=== PATIENT | male | born 1985 | race Asian ===

== ENCOUNTER 2018-07-12 10:06 | Outpatient (CLI) | payer BC ==
[2018-07-12 10:59] LABS: Hemoglobin 15.8 g/dL (14.0-18.0); Mean Corpuscular HGB CONC 32.9 g/dL (32.0-36.0); Mean Corpuscular Hemoglobin 29.6 pg (27.0-31.0); Mean Corpuscular Volume 89.9 fL (78.0-98.0); Mean Platelet Volume 6.8 fL (7.4-10.4); Platelet Count 347 thou/uL (130-400); RBC Distribution Width 11.7 % (11.5-14.5); Red Blood Cell (RBC) Count 5.35 mill/uL (4.70-6.10); White Blood Cell (WBC) Count 7.7 thou/uL (4.8-10.8)
[2018-07-12 11:21] LABS: Anion Gap 11 mmol/L (10-20); BUN (Urea Nitrogen) 13 mg/dL (8.9-20.6); Calc. Creatinine Clearance 0 mL/min (70-130); Calcium 9.1 mg/dL (7.8-10.44); Carbon Dioxide 27 mmol/L (22-29); Chloride 105 mmol/L (98-107); Estimated GFR-MDRD Greater than 90; Glucose 82 mg/dL (70-105); Potassium 3.9 mmol/L (3.5-5.1); Sodium 139 mmol/L (136-145)
== END 2018-07-12 10:07 | disposition home or self-care (01) ==
LOC: LABBT 10:06
PROVIDERS: ATTEND Neurological Surgery
DX: Z01.818 Encounter for other preprocedural examination (principal); M48.02 Spinal stenosis, cervical region
CPT/HCPCS: 80048; 85027; 93005; 93010

== ENCOUNTER 2018-07-15 07:37 | Day surgery (SDC) | payer BC ==
[2018-07-15] MEDS ORDERED: Sodium Chloride 0.9% 10 ML ONE (07:59)
[2018-07-15] MEDS ORDERED: CEFAZOLIN 1 GM VIAL ONE (08:08)
[2018-07-15] MEDS ORDERED: CEFAZOLIN 2 GM/50 ML BAG ONE (08:08)
[2018-07-15] MEDS ORDERED: Fentanyl 100 MCG/2 ML VIAL ONE (08:33)
[2018-07-15] MEDS ORDERED: HYDROcodone/Acetaminophen 5/325 mg Tablet ONE (11:14)
--- NOTE | 2018-07-15 11:59 | OP ---
DATE OF PROCEDURE: 07/15/2018 SURGEON: Damien Adrian M.D. [employer] OPERATOR: Seven Stovall PA-C PROCEDURE: Anterior cervical discectomy C5-6, interbody arthrodesis, intravertebral biomechanical de vice, local morselized autograft, demineralized bone matrix, anterior titanium instrumentation C5-6. PROCEDURE IN DETAIL: The patient was brought to the operating room, intubated. He was positioned chilel pine with the head in modest extension on a gel-filled donut. Incision was made in the right precerv ical area and dissecting medial to sternocleidomastoid muscle, identified the anterior cervical spine and our level was confirmed by x-ray. We debrided osteophytes, placed distraction across C5-6 and u sing the operating microscope and microdissection techniques, completely decompressed the intraverteb ral disc at C5-6. Next, the bony endplates were decorticated for the purpose of arthrodesis and appr opriately sized intravertebral biomechanical PEEK device was brought into the field, filled with angelia neralized bone matrix, local morselized autograft, and tapped into place securely at C5-6. Next, an anterior plate was brought in the field and secured to C5, and C6 using two 14 mm screws at each leve l. The wound was then extensively irrigated, immaculate hemostasis was secured. The wound was close d in anatomic layers.
[2018-07-15] MEDS ORDERED: Vecuronium 10 MG VIAL ONE (17:09)
[2018-07-15] MEDS ORDERED: Dexamethasone 20 MG/5 ML VIAL ONE (17:09)
[2018-07-15] MEDS ORDERED: PROPOFOL 200 MG/20 ML VIAL ONE (17:09)
[2018-07-15] MEDS ORDERED: Ketorolac Tromethamine 30 MG/ML VIAL ONE (17:09)
[2018-07-15] MEDS ORDERED: Ondansetron PF 4 MG/2 ML Vial ONE (17:09)
[2018-07-15] MEDS ORDERED: Glycopyrrolate 0.2 MG/ML 5 ML SYRINGE ONE (17:09)
[2018-07-15] MEDS ORDERED: Lidocaine 1% PF 5 ML VIAL ONE (17:09)
== END 2018-07-15 12:45 | disposition home or self-care (01) ==
LOC: SDC 07:37
PROVIDERS: ATTEND Neurological Surgery
PROC: 0RG1071 Fusion of Cervical Vertebral Joint with Autologous Tissue Substitute, Posterior Approach, Posterior Column, Open Approach (ICD-10-PCS; principal; 2018-07-15)
DX: M48.02 Spinal stenosis, cervical region (principal)
CPT/HCPCS: 76001; C1713; C1776; J0690; J1100; J1885; J2001; J2405; J2704; J3010; J3490

== ENCOUNTER 2018-08-01 15:36 | Outpatient (CLI) | payer BC ==
--- NOTE | 2018-08-01 16:07 | RAD ---
CERVICAL SPINE 4 VIEW: Date: 08/01/18 HISTORY: Cervical myelopathy. FINDINGS: Post anterior fusion changes. Anterior plate and screws are seen transfixing C5-6 with interbody impl ant. Posterior alignment is preserved. Vertebral bodies maintain height. IMPRESSION: Anterior fusion changes at C5-6. POS: [facility]
== END 2018-08-01 15:37 | disposition home or self-care (01) ==
LOC: TBSIIMAG 15:36
PROVIDERS: ATTEND Neurological Surgery
DX: G95.9 Disease of spinal cord, unspecified (principal); Z98.1 Arthrodesis status
CPT/HCPCS: 72040

== ENCOUNTER 2018-08-01 17:20 | Inpatient (IN) | payer BC ==
[2018-08-01] MEDS ORDERED: Mag-Al 1200 mg/1200 mg/30 ML UDCUP PO PRN (17:54)
[2018-08-01] MEDS ORDERED: Ondansetron PF 4 MG/2 ML Vial IVP PRN (17:54)
[2018-08-01] MEDS ORDERED: Promethazine HCl 12.5 MG SUPP PR PRN (17:54)
[2018-08-01] MEDS ORDERED: diphenhydrAMINE 25 MG CAP PO PRN (17:54)
[2018-08-01] MEDS ORDERED: Promethazine 25 MG TAB PO PRN (17:54)
[2018-08-01] MEDS ORDERED: Promethazine HCl 25 MG/ML VIAL IM PRN (17:54)
[2018-08-01] MEDS ORDERED: Morphine 4 MG/ML VIAL SLOW IVP PRN (17:54)
[2018-08-01] MEDS ORDERED: HYDROcodone/Acetaminophen 10/325 mg Tablet PO PRN (17:54)
[2018-08-01] MEDS ORDERED: diphenhydrAMINE 50 MG/ML VIAL IVP PRN (17:54)
[2018-08-01] MEDS ORDERED: traMADol HCl 50 MG TAB PO PRN ×2 (17:54)
[2018-08-01] MEDS ORDERED: Milk Of Magnesia 30 ML UDCUP PO PRN (17:54)
[2018-08-01 18:04] LABS: #Basophils 0.1 thou/uL (0.0-0.2); #Eosinphils 0.2 thou/uL (0.0-0.7); #Lymphocytes 2.9 thou/uL (1.20-3.40); #Monocytes 0.7 thou/uL (0.11-0.59); #Neutrophils 3.6 thou/uL (1.40-6.50); %Basophils 1.3 % (0.0-1.0); %Eosinophils 3.1 % (0.0-10.0); %Lymphocytes 38.9 % (21.0-51.0); %Monocytes 8.7 % (0.0-10.0); Hemoglobin 15.2 g/dL (14.0-18.0); Mean Corpuscular HGB CONC 33.2 g/dL (32.0-36.0); Mean Corpuscular Hemoglobin 29.4 pg (27.0-31.0); Mean Corpuscular Volume 88.6 fL (78.0-98.0); Mean Platelet Volume 6.6 fL (7.4-10.4); Platelet Count 472 thou/uL (130-400); RBC Distribution Width 11.3 % (11.5-14.5); Red Blood Cell (RBC) Count 5.16 mill/uL (4.70-6.10); White Blood Cell (WBC) Count 7.6 thou/uL (4.8-10.8)
[2018-08-01 18:28] LABS: Anion Gap 12 mmol/L (10-20); BUN (Urea Nitrogen) 10 mg/dL (8.9-20.6); Calc. Creatinine Clearance 0 mL/min (70-130); Calcium 9.5 mg/dL (7.8-10.44); Carbon Dioxide 29 mmol/L (22-29); Chloride 101 mmol/L (98-107); Estimated GFR-MDRD Greater than 90; Glucose 71 mg/dL (70-105); Potassium 4.2 mmol/L (3.5-5.1); Sodium 138 mmol/L (136-145)
[2018-08-01 19:15] VITALS: BMI 23.8
--- NOTE | 2018-08-01 19:54 | HP ---
DATE OF ADMISSION: 08/01/2018 ATTENDING PHYSICIAN: Damien Adrian M.D. HISTORY OF PRESENT ILLNESS: The patient is an otherwise healthy 32-year-old male who is known to us for cervical myelopathy who underwent C5-C6 ACDF on 07/15/2018 for herniated nucleus pulposus with cord compression. Following his surgery, he reports he had small amount of wound drainage which was initially bloody, became serous over the last 2 weeks with new development of purulent discharge last night. He denied any fever. Otherwise, he and his reports that he has been doing very well with improvement of extremity dysesthesias and strength. His x-rays today appear stable. I removed the Steri -Strips in our office and there was a notable amount of wound dehiscence with purulent drainage. There is a small surrounding area of erythema. PAST MEDICAL HISTORY: He is otherwise healthy. PAST SURGICAL HISTORY: Ear surgery in 1998, circumcision in 1999, C5-C6 ACDF on 07/15/2018. HOSPITALIZATIONS: See surgical history. FAMILY HISTORY: Noncontributory. SOCIAL HISTORY: The patient is . He does not smoke, drink or use any drugs. ALLERGIES: He has no known drug allergies. REVIEW OF SYSTEMS: Per HPI. PHYSICAL EXAMINATION: CONSTITUTIONAL: The patient is sitting in a chair comfortably in no acute distress. HEENT: Normocephalic, atraumatic. EYES: PERRLA. Extraocular movements intact. ENT: Oral mucosa is pink, intact, moist. SKIN: Patient has normal voice. NECK: Steri-Strips removed reveal a moderate amount of wound dehiscence with small area of surrounding erythema and purulent discharge. It is mildly tender over the incisional site. There is no significant edema. CARDIAC: Regular rate and rhythm. LUNGS: The patient is breathing comfortably with symmetric chest expansion. No evidence of dyspnea. MUSCULOSKELETAL: He has free active range of motion in all extremities and improved strength on my exam. He still does have some notable decrease in strength in the upper extremities, particularly with bilateral candle maker 4-/5. He is slightly hyperreflexive throughout. NEUROLOGIC: Alert and oriented x4. He has a steady gait. ASSESSMENT AND PLAN: This is a 32-year-old otherwise healthy male who is 2 weeks postoperative from a C5-C6 anterior cervical discectomy and fusion, who has developed postoperative wound infection. We will plan to directly admit to the med/surg floor. We will begin IV antibiotics and consult Infectious Disease for assistance. The patient will be made n.p.o. at midnight and we will plan for a washout in the am. EMIL
[2018-08-01] MEDS: Sodium Chloride 0.9% 1,000 ML IV SCH (20:33)
[2018-08-01] MEDS: tiZANidine HCl 4 MG TAB PO PRN (21:21)
[2018-08-01] MEDS: CEFAZOLIN 2 GM/50 ML-DEXTROSE 2 GM in Premix Bag 1 BAG IVPB SCH (21:21)
[2018-08-01] MEDS: HYDROcodone/Acetaminophen 10/325 mg Tablet PO PRN (21:21)
[2018-08-02] MEDS: CEFAZOLIN 2 GM/50 ML-DEXTROSE 2 GM in Premix Bag 1 BAG IVPB SCH (05:41)
[2018-08-02] MEDS ORDERED: Morphine 2 MG/ML SYRINGE SLOW IVP PRN (05:52)
[2018-08-02] MEDS: Sodium Chloride 0.9% 1,000 ML IV SCH ×2 (10:13→22:28)
[2018-08-02] MEDS ORDERED: Fentanyl 100 MCG/2 ML VIAL ONE ×2 (10:20→12:52)
[2018-08-02] MEDS ORDERED: Sodium Chloride 0.9% 10 ML ONE (10:25)
[2018-08-02] MEDS ORDERED: Midazolam HCl 2 mg/2 ml Vial ONE (11:22)
[2018-08-02] MEDS ORDERED: diphenhydrAMINE 50 MG/ML VIAL ONE ×2 (11:51→13:01)
[2018-08-02] MEDS ORDERED: Acetaminophen 325 MG TAB PO PRN (12:06)
--- NOTE | 2018-08-02 12:49 | OP ---
DATE OF PROCEDURE: 08/02/2018 SURGEON: Damien Adrian M.D. [employer]ICATION[employer] SERGEANT: Jeffrey Carlisle PROCEDURE: Reexploration of cervical wound. PROCEDURE IN DETAIL: The patient was brought into the operating room and intubated, positioned supin e with the head in modest extension on a gel-filled donut. The previous incision was reopened. We d id not identify any pockets of purulent material or any necrotic debris. We explored the subplatysma l layer and did not identify any communication to the deeper layers and in fact, this had largely hea led. I was not convinced there is any evidence of wound infection. We did extensively irrigate the wound with Bacitracin irrigation. Next, we debrided the edges of the wound to viable tissue and then the wound was closed in anatomic layers with absorbable suture.
[2018-08-02] MEDS ORDERED: Metoclopramide HCl 10 MG/2 ML VIAL ONE (13:01)
[2018-08-02] MEDS ORDERED: Lidocaine 1% PF 5 ML VIAL ONE (13:01)
[2018-08-02] MEDS ORDERED: Dexamethasone 20 MG/5 ML VIAL ONE (13:01)
[2018-08-02] MEDS ORDERED: PROPOFOL 200 MG/20 ML VIAL ONE (13:01)
[2018-08-02] MEDS ORDERED: Ondansetron PF 4 MG/2 ML Vial ONE (13:01)
[2018-08-02] MEDS ORDERED: Succinylcholine Chloride 20 MG/ML 10 ml SYRINGE FS ONE (13:01)
[2018-08-02] MEDS ORDERED: Ketorolac Tromethamine 30 MG/ML VIAL ONE (13:01)
[2018-08-02] MEDS: Cefepime 2 GM in Sodium Chloride 0.9% 100 ML IVPB SCH (13:54)
[2018-08-02] MEDS: Vancomycin HCl 1.25 GM in Sodium Chloride 0.9% 250 ML 250 ML IVPB SCH ×2 (14:56→22:28)
--- NOTE | 2018-08-02 17:22 | CON ---
DATE OF CONSULTATION: 08/02/2018 REASON FOR CONSULTATION: Postop inflammatory changes with drainage. HISTORY OF PRESENT ILLNESS: A 32-year-old who developed symptoms of radiculopathy and myelopathy and underwent C5-C6 ACDF at the end of June. He developed some wound drainage and reportedly purulent discharge the night before admission. Therefore, led to admission and he had a surgical revision by Dr. Adrian on August 02, 2018. The operative report reviewed and no evidence of any purulent or necrotic material identified and no evidence of communication to the deeper layers, which actually appeared to be healed. I believe cultures have been submitted and are pending. The patient is currently feeling well with mild pain at the site. No headaches, visual symptoms, sore throat, odynophagia. No chest pain, a little bit constipated, able to void without difficulty. No abdominal pain, no joint symptoms. No other neurological symptoms. PAST MEDICAL HISTORY: Not remarkable. He had a circumcision and ear surgery. SOCIAL HISTORY: . He is originally from [facility] and never smoked cigarettes. 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 ALLERGIES: He has no allergies. CURRENT MEDICATIONS: Include Tylenol, Debary, Maalox, cefepime, Benadryl, and vancomycin. PHYSICAL EXAMINATION: VITAL SIGNS: Normal. He is afebrile. The incision is noted and under the dressing, no unusual appearance. Peripheral IV access. No Masters catheter. He has no lymphadenopathy. HEENT: Ocular movements conjugate. Oral cavity normal. No jugular vein distention.. LUNGS: Symmetric clear breath sounds. HEART: S1, S2, regular rate without murmurs. No S3, S4. ABDOMEN: Soft, nondistended. No ascites. No bladder distention. Maybe a little bit of bladder distention. EXTREMITIES: No joint inflammatory activity. Pulses 1+ in the chart. Plantar responses are flexor. NEUROLOGIC: Cognitive function appears to be intact, a little bit drowsy. LABORATORY DATA: The chemistry was perfectly normal. The CBC with a platelet count of 472. Differential was normal except for some increase in basophils. I see cultures submitted here, but not resulted yet. We will have a cervical spine x-ray from August 01, 2018, which showed anterior fusion changes with preserved alignment. ASSESSMENT: Otherwise unremarkable past medical history with post - Anterior Cervical Discectomy and Fusion drainage. The operative findings were not very remarkable. There was no evidence of deep penetration and even if cultures are positive, we could probably manage this with oral antimicrobials for discharge planning for a few days. EMIL
[2018-08-02] MEDS: HYDROcodone/Acetaminophen 10/325 mg Tablet PO PRN (20:33)
[2018-08-02] MEDS ORDERED: Vancomycin HCl 1 GM in Premix Bag 1 BAG IVPB SCH (21:00)
[2018-08-03] MEDS: tiZANidine HCl 4 MG TAB PO PRN (00:28)
[2018-08-03] MEDS: Cefepime 2 GM in Sodium Chloride 0.9% 100 ML IVPB SCH (00:28)
[2018-08-03] MEDS: Vancomycin HCl 1.25 GM in Sodium Chloride 0.9% 250 ML 250 ML IVPB SCH (06:04)
[2018-08-03] MEDS: HYDROcodone/Acetaminophen 10/325 mg Tablet PO PRN (06:09)
[2018-08-03 08:52] VITALS: BP 119/62; TEMP 97.3
== END 2018-08-03 10:30 | disposition home or self-care (01) | DRG 858 ==
LOC: SURG A 17:20
PROVIDERS: ADMIT Neurological Surgery; ATTEND Neurological Surgery
PROC: 0RJ Upper Joints, Inspection (ICD-10-PCS; principal; 2018-08-02)
DX: T81.40XA Infection following a procedure, unspecified, initial encounter (principal)
CPT/HCPCS: 36415; 72040; 80048; 85025; 85652; 87040; 87070; 87076; 87077; 87186; 87205; J0692; J1100; J1200; J1885; J2001; J2250; J2270; J2405; J2704; J2765; J3010; J3370; J3490; J7050

== ENCOUNTER 2018-08-27 14:40 | Outpatient (CLI) | payer BC ==
--- NOTE | 2018-08-27 18:19 | RAD ---
FIVE VIEWS CERVICAL SPINE: 08/27/18 HISTORY: Cervical fusion. Cervical stenosis. Followup exam. COMPARISON: 08/01/18. FINDINGS: On the AP projection, and open mouth projection, no malalignment. Odontoid process is intact. Lateral masses of C1 and C2 articulate appropriately. On the latter and swimmers projection, there is no pre vertebral soft tissue swelling. There is stable alignment of the cervical spine. There is an anterior fusion plate with transvertebral body screw at C5-C6. No perihardware lucency. Stable disc prosthesi s at C5-6. IMPRESSION: Stable cervical fusion changes. POS: [facility]
== END 2018-08-27 14:41 | disposition home or self-care (01) ==
LOC: TBSIIMAG 14:40
PROVIDERS: ATTEND Neurological Surgery
DX: M48.02 Spinal stenosis, cervical region (principal); Z98.1 Arthrodesis status
CPT/HCPCS: 72040

== ENCOUNTER 2018-10-29 13:33 | Outpatient (CLI) | payer BC ==
--- NOTE | 2018-10-29 14:42 | RAD ---
CERVICAL SPINE AP AND LATERAL STANDARD: History: M54.12 cervical radiculopathy. Comparison: 08-27-18 FINDINGS: Open mouth odontoid view is normal. Similar appearance ACDF hardware C5-6 with discectomy changes. No hardware complication. No acute superimposed fracture or malalignment. IMPRESSION: Similar appearance post-operative changes C5-6. POS: [facility]
== END 2018-10-29 13:34 | disposition home or self-care (01) ==
LOC: TBSIIMAG 13:33
PROVIDERS: ATTEND Neurological Surgery
DX: M54.12 Radiculopathy, cervical region (principal); Z98.890 Other specified postprocedural states
CPT/HCPCS: 72040

== ENCOUNTER 2018-11-19 14:07 | Outpatient (CLI) | payer BC ==
--- NOTE | 2018-11-19 15:54 | MRI ---
LUMBAR SPINE MRI WITHOUT IV CONTRAST 11/19/18 HISTORY: M54.16, low back pain since June 2018. FINDINGS: Conus medullaris region is unremarkable terminating at L1. No evidence for abnormal marrow signal. No significant disc desiccation changes. The L1-L2, L2-L3, and L3-L4 levels demonstrate no significant herniation or canal or foraminal steno sis. At L4-L5, there is slightly more prominent ligamentous hypertrophic changes and very slight disc bulg ing but no canal, lateral recess, or foraminal stenosis. L5-S1 level is unremarkable. IMPRESSION: Unremarkable lumbar spine MRI, very mild disc bulging at L4-L5 but no evidence for significant theca l or nerve root compression or associated stenosis. No evidence for other abnormality. POS: [facility]
== END 2018-11-19 14:08 | disposition home or self-care (01) ==
LOC: SCSMRI 14:07
PROVIDERS: ATTEND Neurological Surgery
DX: M51.16 Intervertebral disc disorders with radiculopathy, lumbar region (principal)
CPT/HCPCS: 72148

== ENCOUNTER 2019-01-20 17:04 | Outpatient (CLI) | payer BC ==
[2019-01-20 18:19] LABS: #Basophils 0.1 thou/uL (0.0-0.2); #Eosinphils 0.2 thou/uL (0.0-0.7); #Lymphocytes 2.9 thou/uL (1.20-3.40); #Monocytes 0.9 thou/uL (0.11-0.59); #Neutrophils 3.9 thou/uL (1.40-6.50); %Basophils 1.5 % (0.0-1.0); %Lymphocytes 35.8 % (21.0-51.0); %Monocytes 10.6 % (0.0-10.0); %Neutrophils 49.2 % (42.0-75.0); Hemoglobin 15.6 g/dL (14.0-18.0); Mean Corpuscular HGB CONC 31.5 g/dL (32.0-36.0); Mean Corpuscular Hemoglobin 28.2 pg (27.0-31.0); Mean Corpuscular Volume 89.5 fL (78.0-98.0); Platelet Count 354 thou/uL (130-400); RBC Distribution Width 11.7 % (11.5-14.5); Red Blood Cell (RBC) Count 5.53 mill/uL (4.70-6.10)
== END 2019-01-20 17:05 | disposition home or self-care (01) ==
LOC: LABBT 17:04
PROVIDERS: ATTEND Surgery
DX: Z01.812 Encounter for preprocedural laboratory examination (principal); K40.90 Unilateral inguinal hernia, without obstruction or gangrene, not specified as recurrent
CPT/HCPCS: 85025

== ENCOUNTER 2019-01-22 05:58 | Day surgery (SDC) | payer BC ==
[2019-01-20 17:22] VITALS: BMI 23.2
[2019-01-22] MEDS ORDERED: Fentanyl 100 MCG/2 ML VIAL ONE ×3 (06:22→09:57)
[2019-01-22] MEDS ORDERED: Midazolam HCl 2 mg/2 ml Vial ONE ×2 (06:22→06:57)
[2019-01-22] MEDS ORDERED: Lidocaine 2% Jelly 5 ML TUBE ONE (06:22)
[2019-01-22] MEDS ORDERED: Bupivacaine/Epinephrine 0.25% 30 ML VIAL ONE (07:00)
[2019-01-22] MEDS ORDERED: Meperidine HCl/PF 25 MG/ML VIAL ONE (08:48)
[2019-01-22] MEDS ORDERED: HYDROcodone/Acetaminophen 5/325 mg Tablet ONE (11:12)
[2019-01-22] MEDS ORDERED: Ondansetron ODT 4 MG TAB ONE (12:38)
--- NOTE | 2019-01-22 15:17 | OP ---
DATE OF PROCEDURE: 01/22/2019 PREOPERATIVE DIAGNOSIS: Left inguinal hernia. PROCEDURE PERFORMED: Laparoscopic robotic-assisted left inguinal hernia repair with mesh. INDICATIONS: This is a 33-year-old male, who has been having left groin pain that radiates into his scrotum and upper thigh. He was found to have a small left inguinal hernia. FINDINGS: A direct inguinal hernia. DESCRIPTION OF PROCEDURE: After informed consent was obtained, the patient was taken to the operating room and given general endotracheal anesthesia and placed in the supine position. Abdomen was prepped and draped in usual fashion. Local anesthesia was infiltrated subcutaneously and deep. A small midline incision was performed just above the umbilicus. The fascia grasped and incision made in the fascia. A blunt 12-mm trocar inserted. Pneumoperitoneum was created to a pressure of 15 mmHg. Under direct vision, utilizing a 30-degree laparoscope, two 8 mm ports were placed just lateral to the rectus at the same level as the first incision. Then, the patient was placed in Trendelenburg position and the robot was docked. I went to the console and the peritoneum was opened from median umbilical ligament laterally. A subperitoneal plane was developed using sharp and blunt dissection. The cord structures were delineated. The hernia reduced and the pubic tubercle exposed. A large contour mesh was inserted and placed within this pocket. It was sutured to the pubic tubercle with a 2-0 silk suture tied intracorporeally and to the anterior abdominal wall just medial to the epigastric vessels with a 2-0 silk suture tied intracorporeally. Hemostasis was assured. The peritoneum was closed with a running PDS V-Loc 3-0 from lateral to medial. Hemostasis was assured. All needles were retrieved. The trocars were removed under direct vision. There was no bleeding. The fascia was closed with 0 Vicryl suture. The skin was closed with interrupted 4-0 Rapide. Dermabond applied. The patient tolerated the procedure well, transferred to Recovery in good condition. Sponge and needle count verified correct x2. Job ID: [id number]
[2019-01-22] MEDS ORDERED: Dexamethasone 20 MG/5 ML VIAL ONE (16:27)
[2019-01-22] MEDS ORDERED: Lidocaine 1% PF 5 ML VIAL ONE (16:27)
[2019-01-22] MEDS ORDERED: PROPOFOL 200 MG/20 ML VIAL ONE (16:27)
[2019-01-22] MEDS ORDERED: Glycopyrrolate 0.2 MG/ML 5 ML SYRINGE ONE (16:27)
[2019-01-22] MEDS ORDERED: Ondansetron PF 4 MG/2 ML Vial ONE (16:27)
[2019-01-22] MEDS ORDERED: Rocuronium Bromide 10 MG/ML (10ML VIAL) ONE (16:27)
== END 2019-01-22 13:15 | disposition home or self-care (01) ==
LOC: SDC 05:58
PROVIDERS: ATTEND Surgery
PROC: 0YU64JZ Supplement Left Inguinal Region with Synthetic Substitute, Percutaneous Endoscopic Approach (ICD-10-PCS; principal; 2019-01-22)
DX: K40.90 Unilateral inguinal hernia, without obstruction or gangrene, not specified as recurrent (principal)
CPT/HCPCS: 85025; C1781; J0690; J1100; J2001; J2175; J2250; J2405; J2704; J3010; Q0162

== ENCOUNTER 2019-02-19 08:58 | Outpatient (CLI) | payer BC ==
--- NOTE | 2019-02-19 09:24 | ULT ---
Renal ultrasound. HISTORY: Patient with renal cysts evaluate. Multiple longitudinal and transverse images of the kidneys and bladder is obtained using multi hertz curvilinear transducer. Real-time color flow images obtained. Both kidneys are of normal contour accident size. Right kidney measures 11.2 and left kidney 10.4 cm from pole to pole. No evidence of renal parenchymal masses seen. The left kidney contains a parapelvic cyst measuring 1.4 x 1.8 x 1.6 cm in the midpole. The urinary bladder is unremarkable and is partially decompressed. IMPRESSION: Mid pole left renal parapelvic cyst.
== END 2019-02-19 08:59 | disposition home or self-care (01) ==
LOC: SCSULT 08:58
PROVIDERS: ATTEND Family Medicine
DX: N28.1 Cyst of kidney, acquired (principal)
CPT/HCPCS: 76770

== ENCOUNTER 2019-04-15 07:45 | Outpatient (CLI) | payer BC ==
--- NOTE | 2019-04-15 08:28 | ULT ---
SOFT TISSUE ULTRASOUND LEFT INGUINAL REGION: CLINICAL HISTORY: Palpable mass. FINDINGS: At the site of palpable concern, there is a reniform-shaped, 1.9 x 0.3 cm, circumscribed focus, indic ative of a lymph node, with normal architecture. IMPRESSION: Left inguinal lymph node at site of palpable concern. Correlate clinically. Transcribed Date/Time: 04/15/2019 8:47 AM
== END 2019-04-15 07:46 | disposition home or self-care (01) ==
LOC: ULT 07:45
PROVIDERS: ATTEND Family Medicine
DX: R19.09 Other intra-abdominal and pelvic swelling, mass and lump (principal)
CPT/HCPCS: 76999

== ENCOUNTER 2019-05-16 09:08 | Outpatient (CLI) | payer BC ==
--- NOTE | 2019-05-16 11:09 | MRI ---
CERVICAL SPINE MRI WITH AND WITHOUT CONTRAST: DATE: 05/16/2019. COMPARISON: None. HISTORY: Prior cervical spine surgery, right hand radiculopathy. TECHNIQUE: Multiplanar multisequence MR imaging of cervical spine obtained with and without contrast. FINDINGS: Anterior discectomy and fusion hardware present at C5-6. The sagittal STIR imaging demonstrates no focal area of osseous marrow edema. No anterolisthesis or retrolisthesis noted within the cervical spine. No prevertebral soft tissue swe lling. C2-3: No central canal or neural foraminal stenosis C3-4: Mild uncovertebral osteophyte formation on the left with no significant central canal or neural foraminal stenosis. C4-5: Mild uncovertebral osteophyte formation on the left. No significant central canal or neural for aminal stenosis. C5-6: Bilateral uncovertebral osteophyte formation, left greater than right. No significant central c anal or neural foraminal stenosis. C6-7: No significant central canal or neural foraminal stenosis C7-T1: No significant central canal or neural foraminal stenosis. The postcontrast imaging demonstrates no abnormal enhancement within the cervical spine. Cervical cor d demonstrates no abnormal signal intensity. IMPRESSION: Postoperative and mild degenerative change of the cervical spine as detailed above. Transcribed Date/Time: 05/16/2019 11:47 AM
== END 2019-05-16 09:09 | disposition home or self-care (01) ==
LOC: SCSMRI 09:08
PROVIDERS: ATTEND Specialist
DX: M48.02 Spinal stenosis, cervical region (principal); G99.2 Myelopathy in diseases classified elsewhere; M47.812 Spondylosis without myelopathy or radiculopathy, cervical region; Z98.890 Other specified postprocedural states
CPT/HCPCS: 72156

== ENCOUNTER 2021-01-05 14:31 | Outpatient (CLI) | payer BC | END 2021-01-05 14:32 | disposition home or self-care (01) | LOC: BICULT 14:31 | PROVIDERS: ATTEND Family Medicine | DX: N28.1 Cyst of kidney, acquired (principal) | CPT/HCPCS: 76770 ==